=== PATIENT | male | born 2000 | race Caucasian/White ===

== ENCOUNTER 2021-08-19 12:33 | Emergency (ER) | payer BC, SELFPAY ==
--- NOTE | ~2021-08-19 | US_ITS ---
EXAMINATION: US scrotum doppler DATE: 08/19/2021 13:12 INDICATION: Right testicular pain TECHNIQUE: Testicular sonogram utilizing grayscale and Doppler COMPARISON: None. FINDINGS: The right testis measures 4.1 x 2.2 x 3.0 cm. The left testis measures 3.2 x 1.9 x 2.8 cm. There is normal vascular flow to both testes. The right epididymis is normal with normal vascular galen w. The left epididymis is normal with normal vascular flow. There is no varicocele or hydrocele. IMPRESSION: 1. No sonographic correlate for the patient's symptoms. Reviewed, dictated and finalized at location A. STRIPPER
--- NOTE | ~2021-08-19 | CT_ITS ---
EXAMINATION: CT abdomen pelvis wo con DATE: 08/19/2021 14:01 INDICATION: Right testicle pain TECHNIQUE: Computed tomography (CT) of the abdomen and pelvis was performed without intravenous contr ast. The dose-length product (DLP) was 214.95 mGy-cm. Automated exposure control and iterative recons truction technique were employed. COMPARISON: None FINDINGS: The lung bases are clear. The heart size is normal. The liver, spleen, pancreas, gallbladde r, and adrenal glands are normal. The kidneys are unremarkable. No pathologically enlarged abdominal or pelvic lymph nodes are identified. There is no free intraperitoneal gas or evidence of bowel obstr uction. A moderate volume of colonic stool is present. The appendix is normal. IMPRESSION: 1. No CT correlate for the patient's symptoms. Reviewed, dictated and finalized at location A. REPAIR SUPERVISOR
[2021-08-19 12:45] VITALS: BP 127/69; PULSE 71; RESP 16; TEMP 36.6; O2SAT 100
--- NOTE | 2021-08-19 12:55 | ED.MALEGU ---
HPI - Male Genitourinary General Chief complaint: Urogenital-Male Stated complaint: testicular pain Time Seen by Provider: 08/19/21 12:50 Source: RN notes reviewed History of Present Illness HPI Narrative: Patient presents emergency department from home for right testicular pain. Patient states pain began 2 days ago pain is located in the right testicle does not radiate denies any known trauma or injury he denies any fevers or chills abdominal pain nausea vomiting or any other symptoms. He denies any urethral discharge states he is currently sexually active states he last took ibuprofen yesterday the pain Related Data Allergies Allergy/AdvReac Type Severity Reaction Status Date / Time No Known Allergies Verified 11/17/19 16:49 Review of Systems Review of Systems: Gen.: Denies fevers or chills ENT: Denies congestion Respiratory: Denies shortness of breath or cough CV: Denies chest pain GI: Denies abdominal pain nausea, emesis or diarrhea see HPI Musculoskeletal: Denies back pain or muscle pain Neuro: Denies headache Skin: Denies rash Except as documented, all other systems reviewed and negative [facility] Past Medical History Medical History Acne Reactive airway disease Family History Family History Grandparent Heart disease Father Acute leukemia in remission Social History Social History Smoking status: Never smoker Alcohol intake: never Substance use: never Exam Narrative: APPEARANCE: No acute distress, nontoxic, resting in bed EYES: EOMI HEENT: Normocephalic, atraumatic RESPIRATORY: No respiratory distress Clear to auscultation bilaterally with no rhonchi wheezing or rales. CARDIOVASCULAR: Regular rate and rhythm without murmurs rubs or gallops. ABDOMINAL: Soft, nontender, nondistended, no rebound or guarding : Normal external exam no skin lesions no scrotal swelling or erythema left testicles nontender palpation mild tenderness palpation of the right superior testicle no hernias palpated MUSCULOSKELETAl: Moves all extremities. NEURO: Awake and alert. Following commands, speech normal, no focal deficits SKIN:: Warm, dry. No rashes lesions or abrasions PSYCHIATRIC: Normal affect/mood, Course Course Emergency Course: Called discussed with urology Dr. Hanley presentation work-up at this time he recommends a urine culture be sent as well as urine chlamydia and gonorrhea recommends no definitive antibiotic treatment at this time as there is no other signs of infection and will treat if these come back positive recommends anti-inflammatories with discharge and follow-up as an outpatient Discussed with patient results of workup and diagnosis. Discussed need for follow-up with primary care, proper use of medication, and reasons to return to the emergency department. Patient understands and agrees to current treatment plan Vital Signs Vital signs: Vital Signs Temperature 98 F 08/19/21 12:45 Pulse Rate 71 08/19/21 12:45 Respiratory Rate 16 08/19/21 12:45 Blood Pressure 127/69 08/19/21 12:45 Pulse Oximetry 100 08/19/21 12:45 Temperature 98 F 08/19/21 12:45 Pulse Rate 71 08/19/21 12:45 Respiratory Rate 16 08/19/21 12:45 Blood Pressure 127/69 08/19/21 12:45 Pulse Oximetry 100 08/19/21 12:45 MDM - Male Genitourinary Lab Data Result diagrams: 08/19/21 13:26 08/19/21 13:26 Labs: Lab Results 08/19/21 08/19/21 08/19/21 Range/Units 13:26 13:26 13:37 WBC 6.8 (4.5-10.0) K/mm3 RBC 4.96 (4.6-6.20) M/mm3 Hgb 14.7 (14.0-18.0) g/dL Hct 44.0 (42.0-52.0) % MCV 88.7 (80-100) fl MCH 29.6 (26-34) pg MCHC 33.4 (32-36) g/dl RDW 11.9 (11.5-14.5) % Plt Count 205 (150-375) k/mm3 MPV 9.9 (7.4-10.4) fl Immature Gran % (Auto) 0.1 (0-0.5) %
[2021-08-19] MEDS: IBUPROFEN 600 MG TABLET PO (13:15)
[2021-08-19 13:35] LABS: Basophils Absolute Auto 0.1 K/mm3 (0.0-0.1); Basophils Percent Auto 0.7 % (0.2-1.2); Eosinophils Absolute Auto 0.2 K/mm3 (0-0.3); Eosinophils Percent Auto 2.4 % (0-4.4); Hemoglobin 14.7 g/dL (14.0-18.0); Immature Granulocyte Absolute 0.01 K/mm3 (0.00-0.031); Immature Granulocyte Percent A 0.1 % (0-0.5); Lymphocytes Absolute Auto 1.47 K/mm3 (0.9-3.2); Lymphocytes Percent Auto 21.6 % (18.3-44.2); Mean Corpuscular HGB Conc 33.4 g/dl (32-36); Mean Corpuscular Hemoglobin 29.6 pg (26-34); Mean Corpuscular Volume 88.7 fl (80-100); Mean Platelet Volume 9.9 fl (7.4-10.4); Monocytes Absolute Auto 0.5 K/mm3 (0.1-0.6); Monocytes Percent Auto 7.8 % (2.6-8.5); Neutrophils Absolute Auto 4.6 K/mm3 (1.3-6.7); Neutrophils Percent Auto 67.4 % (45.5-73.1); Platelet Count Result 205 k/mm3 (150-375); Red Blood Count 4.96 M/mm3 (4.6-6.20); Red Cell Distribution Width 11.9 % (11.5-14.5); White Blood Count 6.8 K/mm3 (4.5-10.0)
[2021-08-19 13:47] LABS: Add Urine Microscopic? NO; Appearance Urine Clear (Clear); Bilirubin Urine Negative (Negative); Blood Urine Negative (Negative); Color Urine Straw (Yellow); Glucose Urine UA Negative (Negative); Ketones Urine Negative (Negative); Leukocyte Esterase Ur Negative LEU/UL (Negative); Nitrate Urine Negative (Negative); Protein Urine Negative (Negative); Urobilinogen Urine Negative mg/dL (<2.0)
[2021-08-19 13:48] LABS: Anion Gap 8 mmol/L (8-16); Blood Urea Nitrogen 7 mg/dL (9-20); Calcium 10.4 mg/dL (8.4-10.2); Carbon Dioxide 28 mmol/L (22-30); Chloride 105 mmol/L (98-107); Estimated CRCL calculation 129 ml/min; Estimated Glomerular Filt Rate > 60; Glucose 101 mg/dL (65-110); Potassium 4.4 mmol/L (3.4-5.0); Sodium 141 mmol/L (137-145)
== END 2021-08-19 15:40 | disposition home or self-care (01) ==
PROVIDERS: Emergency Provider Emergency Medicine; PCP Family Medicine
DX: N50.811 Right testicular pain (principal); J45.909 Unspecified asthma, uncomplicated
CPT/HCPCS: 36415; 74176; 76870; 80048; 81003; 85025; 87086; 87491; 87591; 93976; 99284; A9270

== ENCOUNTER 2024-01-01 08:58 | Emergency (ER) | payer BC, OTHER, SELFPAY ==
[2024-01-01 09:08] VITALS: BP 150/73; PULSE 99; RESP 18; TEMP 37.1; O2SAT 100
--- NOTE | 2024-01-01 10:25 | ED.GENADULT ---
HPI - General Adult General Chief complaint: Urogenital-Male Stated complaint: Poss std Source: patient Mode of arrival: ambulatory Limitations: no limitations History of Present Illness HPI narrative: Patient presents for evaluation of great urethral discharge. Symptom onset this morning. He has some mild dysuria. Denies any fever, chills, urinary frequency, urgency, hesitancy, hematuria, testicular pain, low back pain, abdominal pain, nausea or vomiting. He is sexually active with one female partner, sometimes using condoms. Last sexual encounter was 12/23/23. He is not sure whether she is symptomatic. He engages in oral and vaginal intercourse. He has experienced a mild cough as of late. Related Data Home Medications Medication Instructions Recorded Confirmed albuterol sulfate 90 mcg/actuation 2 inh inhalation Q4H PRN shortness 01/01/24 01/01/24 aerosol inhaler (Ventolin HFA) of breath or wheezing Allergies Allergy/AdvReac Type Severity Reaction Status Date / Time No Known Allergies Allergy Verified 01/01/24 10:02 Review of Systems Review of Systems: CONSTITUTIONAL: Denies fever, chills, or sweats. EYES: Denies visual changes, redness, or discharge. ENT: Denies rhinorrhea, congestion, sore throat, or otalgia. CARDIOVASCULAR: Denies chest pain, palpitations, or edema. RESPIRATORY: Reports mild occasional cough. Denies shortness of breath. GASTROINTESTINAL: Denies abdominal pain, nausea, vomiting, or diarrhea. GENITOURINARY: Reports montez urethral discharge. Denies urinary urgency, hesitancy, frequency, hematuria, testicular pain SKIN: Denies rash or itching. MUSCULOSKELETAL: Denies back pain, joint pain, or myalgia. NEUROLOGIC: Denies headache, numbness, dizziness, or weakness. PSYCHIATRIC: Denies anxiety or depression. [facility], LAT[facility] Past Medical History Medical History Acne Body mass index (BMI) less than 20 Reactive airway disease Surgical History Surgical History Hx of tonsillectomy Family History Family History Grandparent Heart disease Father Acute leukemia in remission Mother No problems noted. Social History Social History Smoking status: Never smoker Second hand tobacco smoke exposure: Yes Alcohol intake: current Substance use: never Substance use type: does not use Living arrangements: with family Occupation/Education: occupation Additional occupation/education comments: [employer] Gender identity (if verbalized by the patient): Male Exam Narrative: GENERAL: Well-appearing, well-nourished, and in no acute distress. HEAD: Normocephalic, atraumatic. EYES: PERRLA and EOMI. ENT: Nares clear, no rhinorrhea or epistaxis. Mucous membranes moist. Oropharynx without tonsillar hypertrophy exudate or other lesions. Bilateral TMs pearly montez nonbulging NECK: Supple. No adenopathy or masses. No carotid bruits or JVD CHEST: Clear to auscultation. No respiratory distress. No wheezes rales or rhonchi HEART: Regular rate and rhythm. No murmur heard. Normal peripheral pulses. ABDOMEN: Soft, nontender, nondistended, normal active bowel sounds. GENITAL: No external genital lesions. No inguinal lymphadenopathy. No scrotal swelling. No testicular masses or tenderness. Scant amount of watery montez urethral discharge noted EXTREMITIES: Normal range of motion. No edema. SKIN: Warm, dry, no rash. NEURO: No focal deficits. Alert and oriented x3. PSYCH: Normal mood and affect. Course Course Emergency Course: This is a 23-year-old male who presented for evaluation of urethral discharge. STI testing was performed. Was treated with Rocephin and Flagyl while here. Will discharge with doxycycline. Recommend comprehensive STI ex
[2024-01-01] MEDS: cefTRIAXone 500 MG, LIDOCAINE HCL 1% LOCAL INJ 1 ML IM (10:31)
[2024-01-01] MEDS: metroNIDAZOLE 250 MG TABLET 2000 MG PO (10:31)
[2024-01-01 20:48] LABS: Trichomonas Vag PCR NOT DETECTED (NOT DETECTE)
[2024-01-01 21:11] LABS: Chlamydia trachomatis NOT DETECTED (NOT DETECTE); Neisseria gonorrhoeae PCR NOT DETECTED (NOT DETECTE)
== END 2024-01-01 10:51 | disposition home or self-care (01) ==
PROVIDERS: Emergency Provider Nurse Practitioner; PCP Family Medicine
DX: N34.2 Other urethritis (principal); Z11.3 Encounter for screening for infections with a predominantly sexual mode of transmission; J45.909 Unspecified asthma, uncomplicated
CPT/HCPCS: 81003; 87086; 87491; 87591; 87661; 96372; 99213; A9270; G0463; J0696